=== PATIENT | male | born 1965 | race African-American/Black ===

== ENCOUNTER 2016-09-23 14:36 | Emergency (ER) | payer SELFPAY ==
[~2016-09-23] VITALS: Ht 177.8 cm; Wt 102.1 kg
[~2016-09-23 14:36] MED LIST: CYCL10TA2 PO; HYDR-971 PO
[2016-09-23 14:40] VITALS: BP 133/72
--- NOTE | 2016-09-23 14:55 | PHYS DOC ---
Past Medical History Past Medical History: Sciatica Past Surgical History: No Surgical History Adult General Chief Complaint Chief Complaint: WRIST PAIN HPI HPI Patient is a 51 year old male presents to the emergency department stating that he fell on his right wrist on Wednesday. He states he has had increase pain and discomfort that is not relieved with tylenol or ibuprofen Patient states he has placed ice on the area to help with swelling and pain. Patient denies numbness or tingling to the fingers. He is able to move fingers without difficulty. Patient is right hand dominant. Review of Systems Review of Systems Constitutional: Denies fever or chills [] Eyes: Denies change in visual acuity, redness, or eye pain [] HENT: Denies nasal congestion or sore throat [] Respiratory: Denies cough or shortness of breath [] Cardiovascular: No additional information not addressed in HPI [] GI: Denies abdominal pain, nausea, vomiting, bloody stools or diarrhea [] : Denies dysuria or hematuria [] Musculoskeletal: Denies back pain. Right wrist pain and discomfort Integument: Denies rash or skin lesions [] Neurologic: Denies headache, focal weakness or sensory changes [] Endocrine: Denies polyuria or polydipsia [] Allergies Allergies Allergies Coded Allergies Type Severity Reaction Last Updated Verified No Known Drug Allergies 02/17/13 No Physical Exam Physical Exam Constitutional: Well developed, well nourished, no acute distress, non-toxic appearance. [] HENT: Normocephalic, atraumatic, bilateral external ears normal, oropharynx moist, no oral exudates, nose normal. [] Eyes: PERRLA, EOMI, conjunctiva normal, no discharge. [] Neck: Normal range of motion, no tenderness, supple, no stridor. [] Cardiovascular:Heart rate regular rhythm, no murmur [] Lungs & Thorax: Bilateral breath sounds clear to auscultation [] Skin: Warm, dry, no erythema, no rash. [] Extremities: Right wrist tenderness, no cyanosis, no clubbing, ROM intact, no edema. Swelling noted on the right wrist, no bruising or discoloration noted. Neurologic: Alert and oriented X 3, normal motor function, normal sensory function, no focal deficits noted. [] Psychologic: Affect normal, judgement normal, mood normal. [] Current Patient Data Vital Signs Vital Signs Date Time Temp Pulse Resp B/P (MAP) Pulse Ox O2 Delivery O2 Flow Rate FiO2 09/23/16 14:40 97.9 70 18 95 Room Air 97.9 EKG EKG [] Radiology/Procedures Radiology/Procedures [][facility] [address] [place] [address] IMAGING REPORT Signed PATIENT: STEPHANIE ODOM ACCOUNT: [id number] : 1965 LOCATION: ER AGE: 51 SEX: M EXAM STATUS: REG ER ORD. PHYSICIAN: STEPHANIE ARORA APRN REASON: fell on right wrist PROCEDURE: WRIST 3V RIGHT Right wrist radiograph 09/23/2016 at 1505 hours Indication: Fall, right wrist pain Comparison: None available Technique: 3 views of the right wrist are provided. Findings: There is no acute fracture or dislocation. No joint space narrowing. No soft tissue swelling. No osseous erosion or soft tissue gas. Bone mineralization is within normal limits. Impression: No acute fracture or dislocation. DICTATED and SIGNED BY: ZIA LI MD DATE: 09/23/16 1511 CC: STEPHANIE ARORA APRN; NO PCP; NON,STAFF ~ Course & Med Decision Making Course & Med Decision Making Pertinent Labs and Imaging studies reviewed. (See chart for details) X-rays are negative for any bony abnormalities. Wear the splint for the next week. Follow-up with orthopedic in the next week as well. Ice packs on 20 minutes off 20 minutes several times a day. Elevation as much as possible. Ibuprofen 800 mg every 8 hours with food stop taking few develop an upset stomach. Signs symptoms to return back to emergency department been provided. Patient agrees with discharge instructions treatment regimens and follow-up recommendations. [] Dragon Disclaimer Dragon Disclaimer This electronic medical record was generated, in whole or in part, using a voice recognition dictation system. Departure Departure Impression: Primary Impression: Right wrist sprain Disposition: HOME, SELF-CARE Condition: STABLE Referrals: NO PCP (PCP) CHEIKH RENE MD Patient Instructions: Wrist Pain Additional Instructions: X-rays negative for fracture or broken areas Ibuprofen 800 mg every 8 hours with food. Take this medication with food. stop taking ir you develop upset stomach. Tylenol may also help with pain. Ice packs on 20 minutes and off 20 minutes several times a day Wear the Velcro splint for the next 7 days. Followup with orthopedic in 7-10 days Return to emergency department as needed for signs and symptoms that become worse. STEPHANIE ARORA APRN Sep 23, 2016 14:55
--- NOTE | 2016-09-23 15:15 | RAD ---
Right wrist radiograph 09/23/2016 at 1505 hours Indication: Fall, right wrist pain Comparison: None available Technique: 3 views of the right wrist are provided. Findings: There is no acute fracture or dislocation. No joint space narrowing. No soft tissue swelling. No osseous erosion or soft tissue gas. Bone mineralization is within normal limits. Impression: No acute fracture or dislocation.
== END 2016-09-23 15:20 | disposition home or self-care (01) ==
LOC: ER 14:36
DX: S63.501A Unspecified sprain of right wrist, initial encounter (principal); W18.30XA Fall on same level, unspecified, initial encounter; Y93.89 Activity, other specified; Y99.8 Other external cause status; Y92.89 Other specified places as the place of occurrence of the external cause
CPT/HCPCS: 29125; 73110; 99284-25